=== PATIENT | female | born 1990 | race Caucasian/White ===

== ENCOUNTER 2017-12-24 12:01 | Day surgery (SDC) | payer OTHER ==
--- NOTE | 2017-12-23 12:51 | GHP ---
[f rep st] PREOP HISTORY AND PHYSICAL DATE OF ADMISSION: 12/24/2017 Date of surgery 12/24/2017. ADMITTING DIAGNOSIS: Recurrent left breast cancer. HISTORY OF PRESENT ILLNESS: Autumn is a pleasant 27-year-old woman who was diagnosed with a stage I l eft breast invasive ductal carcinoma in 2016. She underwent nipple-sparing bilateral mastectomy with reconstruction. She took tamoxifen for several months, but discontinued due to side effects. She erendira john presented to the office several weeks ago complaining of skin nodules on the left breast. A biop sy unfortunately showed recurrent invasive ductal carcinoma, ER/WY positive, HER-2/ivy negative. She was seen at [facility] for a second opinion, and has decided to proceed with systemic ch emotherapy and radiation therapy. She will require a port for chemo. She had genetic testing performed in 2015, which was negative. PAST MEDICAL HISTORY: Breast cancer. Otherwise, none. PAST SURGICAL HISTORY: Bilateral mastectomy with reconstruction. ALLERGIES: No known drug allergies. FAMILY HISTORY: Significant for hyperlipidemia, prostate cancer in a paternal grandfather. SOCIAL HISTORY: She works as an ICU nurse at [employer]. She reports occasional alc ohol use. Denies tobacco or recreational drug use. She has a boyfriend and parents are very involve d in her care. REVIEW OF SYSTEMS: A 10-point review of systems negative aside from HPI. PHYSICAL EXAMINATION: GENERAL: A pleasant, well-developed, well-nourished woman in no acute distres s. HEENT: Normocephalic, atraumatic. No hearing deficits. Pupils equal and round. No scleral ict erus. Mucous membranes moist. NECK: Trachea midline. RESPIRATORY: Clear to auscultation bilaterally. No increased work of breathing. CARDIOVASCULAR: R egular rate and rhythm. No peripheral edema. NEUROLOGIC: Grossly intact. PSYCHIATRIC: Mood and affect normal. BREAST: Exam deferred. IMPRESSION AND PLAN: A 27-year-old woman with recurrent left breast cancer. She will require a port for chemotherapy. We discussed risks of surgery, including, but not limited to, heart attack, strok e, blood clots or . We discussed risk of infection, bleeding, pneumothorax, and need for device removal. She understands the risks and would like to proceed. This will be an outpatient procedure . She will receive a chest x-ray in the recovery room. Antibiotics on-call to the operating room. Patient additionally seen by Dr. Najma Bailey, who agrees the above impression and plan. /[id number]/MODL
[2017-12-24] MEDS ORDERED: ceFAZolin 2 GM/SWFI 2 GM/20 ML SYR IVP ONE (12:12)
[2017-12-24] MEDS ORDERED: LIDOCAINE 1% 2 ML INJ ID PRN (12:13)
[2017-12-24] MEDS ORDERED: LR 1,000 ML IV ONE (12:13)
--- NOTE | 2017-12-24 12:16 | PDHPUP ---
History & Physical Update H&P update statement: This history and physical update is based on an assessment of the patient which was completed after admission or registration (within 24 hours), but prior to the surgery/procedure. H&P update: H&P reviewed & patient examined, no change in patient's condition since H&P completed
[2017-12-24] MEDS ORDERED: SCOPOLAMINE HYDROBROMIDE 1 MG/3 DAYS PATCH TD ONE (12:18)
[2017-12-24] MEDS ORDERED: BUPIVACAINE 0.5% 30 ML SDV ONE (12:46)
--- NOTE | 2017-12-24 12:57 | PDANEPAE ---
ANE History of Present Illness port placement ANE Past Medical History - Cardiovascular History Hx Hypertension: No Hx Arrhythmias: No Hx Chest Pain: No Hx Coronary Artery / Peripheral Vascular Disease: No Hx CHF / Valvular Disease: No Hx Palpitations: No - Pulmonary History Hx COPD: No Hx Asthma/Reactive Airway Disease: No Hx Recent Upper Respiratory Infection: No Hx Sleep Apnea: No Sleep Apnea Screening Result - Last Documented: Negative - Neurologic History Hx Cerebrovascular Accident: No Hx Seizures: No Hx Dementia: No - Endocrine History Hx Diabetes: No - Renal History Hx Renal Disorders: No - Liver History Hx Hepatic Disorders: No - Neurological & Psychiatric Hx Hx Neurological and Psychiatric Disorders: No - Cancer History Hx Cancer: Yes Cancer History Comment: breast - Congenital Disorder History Hx Congenital Disorders: No - GI History Hx Gastrointestinal Disorders: No - Other Health History Other Health History: SEASONAL ALLERGIES - Chronic Pain History Chronic Pain: No - Surgical History Prior Surgeries: REMVL AND REPLACEMENT OF IMPLANTS 07/2016. JEANIE MASTECTOMY WITH RECONSTRUCTION 02/2016 ANE Review of Systems Review of systems is: negative Review of Systems: - Exercise capacity METS (RN): 6 METS ANE Patient History - Allergies Allergies/Adverse Reactions: morphine Allergy (Verified 12/20/17 11:57) NAUSEA - Home Medications Home medications: home medication list seen and reviewed Home Medications: Paraguard Iud 1 ea VG AD 02/24/16 [Last Taken 01/25/16] Cetirizine [ZyrTEC 10 mg (*)] 10 mg PO DAILY PRN 12/19/17 [Last Taken 12/24/17 07:00] Fluticasone Nasal [Flonase Nasal Brooks (RX)] 2 sprays NASAL DAILY PRN 12/19/17 [ Last Taken 12/24/17 07:00] - NPO status NPO Status: no food or drink >8 hours NPO Since - Liquids (Date): 12/24/17 NPO Since - Liquids (Time): 09:00 NPO Since - Solids (Date): 12/23/17 NPO Since - Solids (Time): 20:30 - Anes Hx Anes Hx: no prior problems - Smoking Hx Smoking Status: Never smoked - Family Anes Hx Family Anes Hx: none Family Hx Anesthesia Complications: family hx of nausea ANE Labs/Vital Signs - Vital Signs Blood Pressure: 112/71 Heart Rate: 84 Respiratory Rate: 16 O2 Sat (%): 95 Height: 162.56 cm Weight: 63.503 kg ANE Physical Exam - Airway Neck exam: FROM Mallampati Score: Class 1 - Pulmonary Pulmonary: no respiratory distress - Cardiovascular Cardiovascular: regular rate and rhythym - ASA Status ASA Status: II ANE Anesthesia Plan Total IV Anesthesia: Yes
[2017-12-24] MEDS ORDERED: MIDAZOLAM 2 MG/2 ML VIAL ONE (12:58)
[2017-12-24] MEDS ORDERED: ONDANSETRON 4 MG/2 ML VIAL ONE (13:07)
[2017-12-24] MEDS ORDERED: LIDOCAINE 2% 100 MG/5 ML SYR ONE (13:07)
[2017-12-24] MEDS ORDERED: DEXAMETHASONE 4 MG/ML VIAL ONE (13:07)
[2017-12-24] MEDS ORDERED: PROPOFOL/EMULSION 500 MG/50 ML BOTTLE IV ONE (13:07)
--- NOTE | 2017-12-24 13:55 | POSTOPPROG ---
Post Op Note Date of Operation: 12/24/17 Surgeon: Najma Bailey Anesthesiologist: caroline Anesthesia: IV Sedation Pre-op Diagnosis: breast ca Post-op Diagnosis: same Indication: 27 yo with breast cancer Procedure: L IJ port Inf/Abcess present in the surg proc area at time of surgery?: No EBL: Minimal Specimen(s): none
[2017-12-24] MEDS ORDERED: fentaNYL 100 MCG/2 ML INJ IVP PRN (14:02)
[2017-12-24] MEDS ORDERED: NALOXONE HCL 0.4 MG/ML INJ IVP PRN (14:02)
[2017-12-24] MEDS ORDERED: PROMETHAZINE HCL 25 MG/ML INJ IVP PRN (14:02)
[2017-12-24] MEDS ORDERED: ACETAMINOPHEN 500 MG TAB PO PRN (14:02)
[2017-12-24] MEDS ORDERED: MEPERIDINE 25 MG/ML SYR IVP PRN (14:02)
[2017-12-24] MEDS ORDERED: oxyCODONE IR 5 MG TAB PO PRN (14:02)
[2017-12-24] MEDS ORDERED: HYDROCODONE/APAP 5/325 TAB PO PRN (14:02)
--- NOTE | 2017-12-24 14:04 | POSTANESTH ---
Post Anesthetic Evaluation Cardiovascular Status: Normal, Stable, Similar to Pre-Op Cond Respiratory Status: Normal, Stable, Similar to Pre-op Cond. Level of Consciousness/Mental Status: Can Participate in Eval, Mildly Sleepy, Arousable Pain Control: Adequate, Prn Tx Ordered Nausea/Vomiting Control: Adequate, Prn Tx Ordered Complications Possibly Related to Anesthesia: None Noted
[2017-12-24] MEDS ORDERED: ACETAMINOPHEN 500 MG TAB ONE (14:09)
[2017-12-24 14:42] VITALS: BP 110/77
--- NOTE | 2017-12-24 20:08 | GOP ---
[f rep st] OPERATIVE REPORT DATE OF OPERATION: 12/24/2017 SURGEON: Najma Bailey MD ANESTHESIA: Monitored anesthesia care with IV sedation. ANESTHESIOLOGIST: Dr. Ti Vu. PREOPERATIVE DIAGNOSIS: Metastatic breast cancer. POSTOPERATIVE DIAGNOSIS: Metastatic breast cancer. PROCEDURE PERFORMED: Left internal jugular PowerPort placement. FINDINGS: SPECIMENS: None. ESTIMATED BLOOD LOSS: Minimal. INDICATIONS: The patient is a 27-year-old woman status post bilateral mastectomies and reconstructio n. She noticed some skin nodules. They were biopsy-proven to be breast cancer. DESCRIPTION OF PROCEDURE: The patient was brought into the operating room, placed supine on the tabl e, and IV sedation was performed. Her bilateral neck and chest were prepped and draped in the usual sterile fashion. I used the ultrasound to identify the internal jugular vein. It was fully compressible. I infiltrat ed the area with 0.5% Marcaine prior to making the incision. I accessed the internal jugular vein on the first attempt with dark return of blood flow. I threaded the guidewire and initially went acros s the innominate and back up the contralateral internal jugular vein. Under fluoroscopy, I redirecte d it to go down to the inferior vena cava. I created a pocket to accommodate the port on the left chest. I tunneled the port and catheter up to the insertion site under fluoroscopy. I measured the catheter and cut it to size. Using the Seldin shailesh technique, I placed a dilator and sheath over the wire. I removed the wire and the dilator. I t hreaded the catheter through the sheath. Placement was confirmed with fluoroscopy. The port withdre w blood easily and was flushed with heparin. Pocket closed with 3-0 Vicryl followed by 4-0 Monocryl. Dermabond applied. She was awakened in the operating room, transferred to PACU in stable condition. Chest x-ray shows t he port in good position without pneumothorax. /[id number]/MODL
== END 2017-12-24 15:09 | disposition home or self-care (01) ==
LOC: F3N 12:01 → FSGY 12:01 → UNDOADMOB 12:01 → EDSTATUS 13:15 → FSGY 15:09
PROVIDERS: ATTEND Surgery
PROC: 02H633Z Insertion of Infusion Device into Right Atrium, Percutaneous Approach (ICD-10-PCS; principal; 2017-12-24 13:15)
PROC: 0JH60XZ Insertion of Tunneled Vascular Access Device into Chest Subcutaneous Tissue and Fascia, Open Approach (ICD-10-PCS; principal; 2017-12-24 13:15)
DX: Z45.2 Encounter for adjustment and management of vascular access device (principal); C50.912 Malignant neoplasm of unspecified site of left female breast; Z90.13 Acquired absence of bilateral breasts and nipples
CPT/HCPCS: C1788; J0690; J1100; J1642; J2001; J2250; J2405; J2704

== ENCOUNTER → 2018-01-08 | Outpatient (CLI) | payer OTHER | LOC: FIMAGING 10:08 | PROVIDERS: ATTEND Internal Medicine Medical Oncology | DX: Z12.89 Encounter for screening for malignant neoplasm of other sites (principal); C50.911 Malignant neoplasm of unspecified site of right female breast | CPT/HCPCS: 78306; A9503 ==

== ENCOUNTER → 2018-06-06 | Outpatient (CLI) | payer OTHER | LOC: FIMAGING 13:48 | PROVIDERS: ATTEND Internal Medicine Hematology & Oncology | DX: Z13.820 Encounter for screening for osteoporosis (principal); C50.911 Malignant neoplasm of unspecified site of right female breast; Z79.818 Long term (current) use of other agents affecting estrogen receptors and estrogen levels ==